=== PATIENT | female | born 2005 | race Two or more races ===

== ENCOUNTER 2025-01-14 17:33 | Emergency (ER) | payer OTHER ==
[~2025-01-14] VITALS: Ht 167.6 cm; Wt 60.0 kg
[2025-01-14 18:04] VITALS: O2SAT 99
[2025-01-14 19:13] LABS: BASOPHILS % 0.4 % (0.0-2.0); EOSINOPHILS % 2.0 % (0.0-5.0); HEMATOCRIT. 36.4 % (36.0-48.0); HEMOGLOBIN. 12.2 g/dL (12.0-16.0); LYMPHOCYTES % 30.5 % (20.0-50.0); MEAN PLATELET VOLUME 9.8 fl (7.4-10.4); MONOCYTES % 6.6 % (2.0-8.0); NEUTROPHILS % 60.5 % (40.0-76.0); PLATELET 275 x1000/uL (130-400); RED BLOOD CELL COUNT 4.02 mill/uL (4.2-5.4); RED CELL DISTRIBUTION WIDTH 12.4 % (11.6-14.6)
[2025-01-14 19:26] LABS: CREATININE 0.7 mg/dL (0.6-1.0); HCG SCREEN NEGATIVE
[2025-01-14 19:27] LABS: UREA NITROGEN BLOOD < 5 mg/dL (9-23)
[2025-01-14 19:35] LABS: TROPONIN I HIGH SENSITIVITY < 4 ng/L (3.0-34)
[2025-01-14 20:32] VITALS: BP 109/74; PULSE 71; RESP 12; TEMP 36.9; O2SAT 100
== END 2025-01-14 20:37 | disposition home or self-care (01) ==
LOC: ER 17:46
DX: R55 Syncope and collapse (principal)
CPT/HCPCS: 36415; 71045; 80048; 81025; 84484; 84703; 85025; 93005; 99285